=== PATIENT | female | born 1985 | race Caucasian/White ===

== ENCOUNTER 2022-06-09 09:10 | Outpatient (CLI) | payer BC, SELFPAY ==
--- NOTE | 2022-06-09 | US_ITS ---
WS: [id number] TRANSABDOMINAL PELVIC AND TRANSVAGINAL PELVIC ULTRASOUND HISTORY: Amenorrhea COMPARISON: None available. Uterus: 8.0 cm x 5.4 cm x 4.4 cm. Normal size anteverted uterus. No fibroid or mass. Endometrium: 1.7 cm. Thickened endometrium with increased echogenicity. Hyperechoic endometrium with a few scattered cystic spaces. This is diffuse thickening of the endometrium. Junctional zone is inta ct. Right ovary: 2.9 cm x 3.0 cm x 2.2 cm. Normal size and echogenicity. There are a few small follicles. Normal vascularity. Left ovary: 2.8 cm x 3.1 cm x 2.0 cm. Normal size ovary. Normal vascularity. No free fluid. US/US pelvic with transvaginal IMPRESSION: 1. Abnormal endometrium. Enlarged, hyperechoic endometrium with a few scattere d cystic areas. There is diffuse enlargement of the endometrium. Differential i ncludes hyperplasia and a large endometrial polyp. Less likely neoplasm althoug h that is not excluded. Recommend further evaluation by hysteroscopy. 2. No fibroid.
== END 2022-06-09 09:11 | disposition home or self-care (01) ==
PROVIDERS: PCP Family Medicine; Visit Provider Family Medicine
DX: N91.2 Amenorrhea, unspecified (principal); N93.8 Other specified abnormal uterine and vaginal bleeding; N85.00 Endometrial hyperplasia, unspecified
CPT/HCPCS: 76830; 76856

== ENCOUNTER → 2022-06-27 16:10 | Outpatient (BNVA) | payer BC, SELFPAY | PROVIDERS: PCP Family Medicine; Visit Provider Obstetrics & Gynecology | DX: N93.9 Abnormal uterine and vaginal bleeding, unspecified (principal); N92.1 Excessive and frequent menstruation with irregular cycle | CPT/HCPCS: 83001; 84146; 84702; 85025 ==

== ENCOUNTER 2022-07-19 13:24 | Day surgery (SDC) | payer BC, SELFPAY ==
[2022-07-17 09:20] VITALS: BMI 38.2
[2022-07-17 09:55] LABS: Add Urine Microscopic? NO; Charge for UA Resulting for Rev
[2022-07-17 09:58] LABS: Bilirubin Urine Neg (Negative); Blood Urine Neg (Negative); Glucose Urine UA Norm (Normal); Ketones Urine Negative (Negative); Leukocyte Esterase Urine Negative (Negative); Nitrate Urine Negative (Negative); OR HCG Qualitative Urine Negative (Negative); Protein Urine Neg (Negative); Urine Appearance Clear (CLEAR); Urine Color Yellow (Yellow); Urobilinogen Urine Norm (Negative); pH Urine 5 (5-7)
[2022-07-17 10:02] LABS: Basophils % 0.4 %; Eosinophils # 0.1 10^3/uL (0.0-0.8); Eosinophils % 1.5 %; Hematocrit 43.2 % (37.0-47.0); Lymphocytes # 1.7 10^3/uL (0.8-4.8); Lymphocytes % 30.8 %; Mean Corpuscular HGB Conc 32.4 g/dL (30.0-36.0); Mean Corpuscular Hemoglobin 28.8 pg (28.0-34.0); Mean Corpuscular Volume 88.9 fl (81-99); Mean Platelet Volume 9.8 fL (7.4-10.4); Monocytes # 0.4 10^3/uL (0.2-0.9); Monocytes % 7.1 %; Nucleated Red Blood Cells % 0 %; Platelet Count 280 10^3/cmm (130-400); Red Blood Count 4.86 10^6/uL (4.1-5.3); Red Cell Distribution Width 11.6 % (12.1-15.1); White Blood Count 5.5 10^3/uL (4.0-10.0)
[2022-07-17 10:23] LABS: Alanine Aminotransferase 17 U/L (0-33); Alkaline Phosphatase 66 U/L (35-105); Anion Gap 10.9 (5-19); Aspartate Amino Transferase 18 U/L (0-32); Blood Urea Nitrogen 11 mg/dL (6-20); Calcium 8.8 mg/dL (8.5-10.5); Carbon Dioxide 24 mmol/L (22-29); Chloride 102 mmol/L (98-107); Glomerular Filtration Rate 94.7 mL/min (90-130); Glucose 87 mg/dL (65-115); Osmolality Calculated 275 mOsm/kg (285-295); Potassium 3.9 mmol/L (3.5-5.1); Sodium 133 mmol/L (136-145); Total Bilirubin 0.3 mg/dL (0.15-1.2)
--- NOTE | 2022-07-17 16:53 | ANES.PREANE2 ---
Pre-Anesthetic Assessment Height/Weight: Height 1.63 m Weight 101.151 kg Preop Diagnosis: Abnormal uterine bleeding, Operation Date: 07/19/22 12:25 Proposed Procedures p Hysterosocpy, dilation and curettage with Myosure 23115, [id number] N93.9,N84.0(Not Applicable) - Orlando Gunderson MD s Dilation And Curettage (D&C)(Not Applicable) - Orlando Gunderson MD Familial anesthetic complications: none Was Beta Isidro taken within 24 hours: N/A Was Clonidine taken within 24 hours: N/A Social No alcohol and No tobacco Exam alert, oriented x 3, clear to auscultation bilaterally and regular rate & rhythm Airway Submandibular: within normal limits Cervical ROM: within normal limits Mallampati: Class II Dentition: full History/ROS No significant history except as noted Anesthetic Plan ASA status: 1 Anesthesia: General Medications/Allergies Home Medications Medication Instructions Recorded Confirmed Last Taken Type No Known Home Medications 07/17/22 07/17/22 Unknown History Allergies Allergy/AdvReac Type Severity Reaction Status Date / Time clavulanic acid Allergy Severe hives Verified 07/04/22 08:07 [From Augmentin] azithromycin [From Zithromax] Allergy hives Verified 07/04/22 08:07 loratadine [From Claritin] Allergy hives Verified 07/04/22 08:07 [facility] Anesthesia Family History (Updated 06/27/22 @ 15:10 by Yolette Rose RN) Father Diabetes Grandfather Heart disease paternal Family/Other Heart disease maternal uncle Denies family history of Colon cancer Ovarian cancer Clotting disorder Hyperlipidemia Breast cancer Anesthesia complication Bleeding disorder Hypertension Uterine cancer Thyroid condition Stroke Data Anesthesia 07/17/22 09:30 07/17/22 09:30 Short CBC 07/17/22 Range/Units 09:30 WBC 5.5 (4.0-10.0) 10^3/uL Hgb 14.0 (11.5-15.3) g/dL Hct 43.2 (37.0-47.0) % MCV 88.9 (81-99) fl Plt Count 280 (130-400) 10^3/cmm Neut % (Auto) 60.0 % Neut # (Auto) 3.30 (1.8-7.7) 10^3/uL BMP 07/17/22 09:30 Sodium 133 L Potassium 3.9 Chloride 102 Carbon Dioxide 24 BUN 11 Creatinine 0.7 Glucose 87 Calcium 8.8 Liver Function 07/17/22 Range/Units 09:30 Total Bilirubin 0.3 (0.15-1.2) mg/dL AST 18 (0-32) U/L ALT 17 (0-33) U/L Alkaline Phosphatase 66 (35-105) U/L Albumin 4.0 (3.5-5.2) g/dL Urine 07/17/22 Range/Units 09:36 Urine Color Yellow (Yellow) Urine Appearance Clear (CLEAR) Urine pH 5 (5-7) Ur Specific [place] 1.020 (1.005-1.030) Urine Protein Neg (Negative) Urine Glucose (UA) Norm (Normal) Urine Ketones Negative (Negative) Urine Nitrate Negative (Negative) Urine Bilirubin Neg (Negative) Ur Leukocyte Esterase Negative (Negative) Blood Bank 07/17/22 09:30 Blood Type A Positive Rho(D) Type Positive Antibody Screen Negative Cardiac Studies: No Data to Display
[2022-07-19] VITALS (8 sets, daily range): BP systolic 93–132; BP diastolic 61–77; PULSE 67–84; RESP 14–20; TEMP 36.1–36.6; O2SAT 96–98
[2022-07-19] MEDS: sodium chloride 0.9% 1,000 ML 30 ML IV (13:44)
[2022-07-19] MEDS: scopolamine 1.5 Patch 1 PATCH TRANSDERMA (13:46)
--- NOTE | 2022-07-19 14:00 | W.PM.OPSUD ---
Surgery/Procedure H&P Update DATE OF PROCEDURE: July 19, 2022 DATE H&P PERFORMED: 07/17/22 H&P UPDATE INFORMATION: I have reviewed H&P completed within last 30 days, I have examined patient prior to procedure and No changes to prior documentation PREOP DIAGNOSIS: Abnormal uterine bleeding, PLANNED PROCEDURE: Operation Date: 07/19/22 15:05 Proposed Procedures p Hysterosocpy, dilation and curettage with Myosure 61431, [id number] N93.9,N84.0(Not Applicable) - Orlando Gunderson MD s Dilation And Curettage (D&C)(Not Applicable) - Orlando Gunderson MD
--- NOTE | 2022-07-19 14:40 | P.ANESUD_ITS ---
Pre-Anesthetic Update Pre-Anesthetic Assessment: Date of Surgery/Procedure: 07/19/22 Preop Cheri gnosis: Abnormal uterine bleeding, Proposed Procedure: Operation Date: 07/19/22 15:05 Proposed Procedures p Hysterosocpy, dilation and curettage with Myosure 46721, [id number] N93.9,N84.0(Not Applicable) - Orlando Gunderson MD s Dilation And Curettage (D&C)(Not Applicable) - Orlando Gunderson MD Any changes to Pre-Anesthetic Assessment?: No Last Intake: Intake Last Liquid Date 07/18/22 Last Liquid Time 22:30 Last Solid Date 07/18/22 Last Solid Time 22:30 Vitals: Temperature 97.8 F 07/19/22 13:29 Temperature Source Temporal Artery S can 07/19/22 13:29 Pulse Rate 67 07/19/22 13:29 Respiratory Rate 15 07/19/22 13:29 Blood Pressure 132/71 07/19/22 13:29 Blood Pressure Hiwot n 91 07/19/22 13:29 Pulse Oximetry 98 07/19/22 13:29 Oxygen Delivery Me thod 07/19/22 13:35 Exam: Pre-Anes Outpt Exam: alert, oriented x 3, clear to auscultation bilaterally and regular rate & rhythm Cardiac Studies: No Data to Display
--- NOTE | 2022-07-19 16:35 | PM.OP ---
Operative Report Date of procedure: July 19, 2022 Pre-op diagnosis: Preop Diagnosis Abnormal uterine bleeding, Post-op diagnosis: Same as above Procedure done: Hysteroscopy dilation and curettage via MyoSure Specimens removed/disposition: Endometrial curettings Surgeon: Orlando Gunderson MD Estimated blood loss (mL): 10 IV fluids (mL): 1,200 Procedure: After informed consent, the risks included but were not limited to bleeding, infection, injury to internal organs. The patient was counseled on a possible laparotomy and on the potential need for hysterectomy. The patient expressed understanding of the risks involved, all questions were answered, and the patient consented to the procedure. The patient was taken to the operating room where general anesthesia was administered. She was placed in the dorsal lithotomy position and prepped and draped in sterile fashion. A time out procedure was performed. The patient was examined under anesthesia and found to have a normal uterus with normal adnexa. A sterile weight speculum was placed in the vagina. The uterus was then gently sounded to 9 cm, and the cervix was dilated. The 0 degrees MyoSure hysteroscope was advanced gently to the uterine fundus while visualizing the monitor. Survey of the uterine cavity showed: Proliferative endometrium, the fundus shows proliferative endometrium; left ostium was visualized, and lateral wall with proliferative endometrium; right ostium visualized, and lateral wall with proliferative endometrium; anterior and posterior lomeli are with proliferative endometrium; endocervical canal is normal. The MyoSure device was advanced and the direct visualization the endometrium was morcellated without complication. At the end of morcellation the fluid deficit was 185 mL and was estimated at approximately 100 mL were on the floor. There was minimal bleeding noted and the tenaculum removed with goad hemostasis noted. The patient tolerated the procedure well. The patient was taken to the recovery area in stable condition.
--- NOTE | 2022-07-20 08:48 | ANE.PACU2 ---
Inpatient post-anesthesia follow up: Airway intact: Yes Vital signs: Temperature 97.1 F Pulse Rate 77 Respiratory Rate 16 Blood Pressure 118/73 Pulse Oximetry 98 Oxygen Delivery Me thod Room Air Oxygen Flow Rate 6 Fraction of Inspir ed Oxygen Hydration adequate: Yes Nausea and vomiting: No Pain level: 2 Mental status: Baseline
== END 2022-07-19 17:52 | disposition home or self-care (01) ==
PROVIDERS: PCP Family Medicine; Visit Provider Obstetrics & Gynecology
PROC: 0UDB8ZZ Extraction of Endometrium, Via Natural or Artificial Opening Endoscopic (ICD-10-PCS; CPT 58558; principal; 2022-07-19 14:55)
PROC: (CPT 58120; 2022-07-19 14:55)
DX: N93.9 Abnormal uterine and vaginal bleeding, unspecified (principal)
CPT/HCPCS: 58558; 36415; 80053; 81003; 84703; 85025; 86850; 86900; 88305; J0131; J1100; J1885; J2250; J2405; J2704; J3010; J7030

== ENCOUNTER → 2024-03-31 14:30 | Outpatient (BNVA) | payer OTHER, SELFPAY | PROVIDERS: PCP Family Medicine; Visit Provider Obstetrics & Gynecology | DX: N92.1 Excessive and frequent menstruation with irregular cycle (principal) | CPT/HCPCS: 83001; 84146; 84443; 84702; 85025 ==

== ENCOUNTER 2024-12-18 09:01 | Outpatient (CLI) | payer OTHER, SELFPAY | END 2024-12-18 09:02 | disposition home or self-care (01) | LOC: SLEEP 09:05 | PROVIDERS: PCP Family Medicine; Visit Provider Family Medicine | DX: G47.33 Obstructive sleep apnea (adult) (pediatric) (principal) | CPT/HCPCS: G0399 ==